=== PATIENT | female | born 1950 | race Asian ===

== ENCOUNTER 2016-07-30 21:18 | Emergency (ER) | payer OTHER ==
[2016-07-30 21:38] VITALS: BP 148/77; PULSE 86; TEMP 98.9; BMI 25.0
--- NOTE | 2016-07-30 22:57 | PDOC ---
History of Present Illness <ValentinaHugo ramsay - Last Filed: 07/30/16 23:08> - General History Source: Patient Exam Limitations: No Limitations - History of Present Illness Initial Comments: 07/30/16 23:41 The patient is a 65 year old female presenting with her family, with a significant past medical history of HLD, who presents to the emergency department with left ankle pain after she twisted her ankle today (eversion injury) The family states that the patient was walking when she twisted her ankle outwards. They deny any fall, dizziness or any other kind of injury. The patient notes that her pain ranges from mild to moderate. On presentation the patient is on a wheelchair. Allergies: None Past surgical history: None reported Social history: No alcohol, tobacco or drug use reported PMD - Dr. Juan Navarro <Romel Johnson - Last Filed: 07/30/16 23:44> - General Chief Complaint: Injury Stated Complaint: LT ANKLE INJURY Time Seen by Provider: 07/30/16 22:19 Past History - Psycho/Social/Smoking Cessation Hx Suicidal Ideation: No Smoking History: Never smoked <Hugo Montgomery - Last Filed: 07/30/16 23:08> <Romel Johnson - Last Filed: 07/30/16 23:44> - Past Medical History Allergies/Adverse Reactions: Allergies Allergy/AdvReac Type Severity Reaction Status Date / Time No Known Allergies Allergy Verified 07/30/16 21:35 Home Medications: Ambulatory Orders NK [No Known Home Medication] 07/30/16 Review of Systems - Review of Systems Able to Perform ROS?: Yes Comments:: 07/30/16 23:41 CONSTITUTIONAL: No reported: Fever, Chills, Diaphoresis, Generalized Weakness, Malaise, Loss of Appetite MUSCULOSKELETAL: No reported: Myalgia, Arthralgia, Joint Swelling, Back pain, Neck Pain EXTREMITIES: Reported: Left ankle pain SKIN: No reported: Rash, Itching, Pallor NEUROLOGIC: No reported: Headache, Focal Weakness, Paresthesias, Vertigo, Lightheadedness, Unsteady Gait, Seizure, Mental Status Changes, Incontinence <Romel Johnson - Last Filed: 07/30/16 23:44> *Physical Exam - Vital Signs Last Vital Signs Temp Pulse Resp BP Pulse Ox 98.9 F 86 18 148/77 97 07/30/16 21:36 07/30/16 21:36 07/30/16 21:36 07/30/16 21:36 07/30/16 21:36 <Hugo Montgomery - Last Filed: 07/30/16 23:08> - Vital Signs Last Vital Signs Temp Pulse Resp BP Pulse Ox 98.9 F 86 18 148/77 97 07/30/16 21:36 07/30/16 21:36 07/30/16 21:36 07/30/16 21:36 07/30/16 21:36 - Physical Exam Comments: 07/30/16 23:44 GENERAL: The patient is awake, alert, and fully oriented, Nontoxic - in no acute distress. EXTREMITIES: +Mild tenderness in the lateral malleolus and mild tenderness in the talo fibular No tenderness along the fifth metatarsal, no other focal tenderness in the proximal tibia/fibula and knee <Romel Johnson - Last Filed: 07/30/16 23:44> ED Treatment Course - Medications Given in the ED: ED Medications Discontinued Medications Generic Name Dose Route Start Last Admin Trade Name Freq PRN Reason Stop Dose Admin Acetaminophen 650 mg 07/30/16 23:08 07/30/16 23:11 Tylenol - PO 07/30/16 23:09 650 mg ONCE ONE Administration <Romel Johnson - Last Filed: 07/30/16 23:44> Medical Decision Making - Medical Decision Making 07/30/16 22:56 65y F presenting s/p eversion injury to foot. p with mild tendernes to lateral maleolus, no tenderness along 5th metatarsal or any where in the proximal lower extremity pts xray is negative for fx likely strain will put in air cast/christian wrap will d/c with pmd fu returnp rcautions were discussed tylenol for pain. A portion of this note was documented by scribe services under my direction. I have reviewed the details of the note, within reason, and agree with the documentation with the following case summary and management plan written by me <Hugo Montgomery - Last Filed: 07/30/16 23:08> *DC/Admit/Observation/Transfer - Discharge Dispostion Admit: No <Hugo Montgomery - Last Filed: 07/30/16 23:08> - Attestations Scribe Attestion: 07/30/16 23:44 Documentation prepared by Romel Johnson, acting as rn medical inpatient services for Hugo Montgomery MD <Romel Johnson - Last Filed: 07/30/16 23:44> Diagnosis at time of Disposition: Ankle sprain Qualifiers: Encounter type: initial encounter Involved ligament of ankle: other ligament Laterality: left Qualified Code(s): S93.492A - Sprain of other ligament of left ankle, initial encounter - Discharge Dispostion Disposition: HOME Condition at time of disposition: Improved - Referrals Referrals: Rossana Navarro [Primary Care Provider] - - Patient Instructions Printed Discharge Instructions: DI for Ankle Sprain Additional Instructions: Return to the emergency department immediately with ANY new, persistent or worsening symptoms. Use the aircast as needed. You MUST call and follow up with your doctor tomorrow for further evaluation of your symptoms. Results were discussed with you. Please make sure your doctor reviews the results of your emergency evaluation. If you had any xrays during your visit, it was read preliminarily by myself, a Radiologist will review it and if there are any additional findings we will call you. Print Language: ALBANIAN
[2016-07-30] MEDS ORDERED: ACETAMINOPHEN 325 MG TABLET (FP) PO ONE (23:08)
[2016-07-30] MEDS ORDERED: ACETAMINOPHEN 325 MG TABLET (FP) ONE (23:09)
== END 2016-07-30 23:12 | disposition home or self-care (01) ==
LOC: JERFT 21:18 → JER 21:18
PROC: 2W3MX1Z Immobilization of Left Lower Extremity using Splint (ICD-10-PCS; principal; 2016-07-30)
DX: S93.492A Sprain of other ligament of left ankle, initial encounter (principal); X50.1XXA Overexertion from prolonged static or awkward postures, initial encounter; Y93.01 Activity, walking, marching and hiking; Y92.89 Other specified places as the place of occurrence of the external cause
CPT/HCPCS: 29515; 73610-TC-LT; 73630-TC-LT; 99283-25